=== PATIENT | female | born 1990 | race American Indian/Alaskan Native ===

== ENCOUNTER 2018-07-14 06:08 | Day surgery (SDC) | payer BC ==
[2018-07-08 11:13] LABS: Basophils % (Auto) 0.7 % (0.0-1.8); Eosinophils # (Auto) 0.1 K/mm3 (0.0-0.4); Eosinophils % (Auto) 1.4 % (0.0-4.3); Hemoglobin 11.1 gm/dl (10.1-14.3); Lymphocytes # (Auto) 2.2 K/mm3 (1.2-5.4); Lymphocytes % (Auto) 45.6 % (13.4-35.0); Mean Corpuscular HGB Conc 33 % (30-34); Mean Corpuscular Hemoglobin 28 pg (28-32); Mean Corpuscular Volume 85 fl (79-97); Monocytes # (Auto) 0.4 K/mm3 (0.0-0.8); Platelet Count 286 K/mm3 (140-440); Red Blood Count 3.99 M/mm3 (3.65-5.03)
--- NOTE | 2018-07-13 03:03 | History and Physical Report ---
History of Present Illness Date of examination: 07/10/18 Date of admission: 07/14/18 Chief complaint: heavy painful periods History of present illness: Pt has h/o menorrhagia and dysmenorrhea. SIS done in April 2018 shows an intrauteine fibroid present that is appriximately 1-2 cm in size. Methods of treatment both medical an surgical were d/w pt.She desires myosure at this time. All risk/benefits/alternatives were d/w pt and questions were addressed and answered. Consents were signed and placed on the chart. 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 of genital herpes: yes Hx of STD: HSV II Other: GC/Chlm/Trich Past Medical History: Reviewed history and no changes required: Negative Past Medical History Past Surgical History: negative Negative Past Surgical History General Comments - FH: HTN DM CA-unknown type Social History: Patient is single occ etoh, no tobacco, no drugs Past History Past Medical History: no pertinent history Past Surgical History: no surgical history COMPUTER NUMERICAL CONTROL PROGRAMMER History: denies: abnormal PAP smear Family/Genetic History: cancer Medications and Allergies Allergies Allergy/AdvReac Type Severity Reaction Status Date / Time No Known Allergies Allergy Verified 07/06/18 15:42 Home Medications Medication Instructions Recorded Confirmed Last Taken Type valACYclovir [Valtrex] 1 tab PO DAILY 07/06/18 07/06/18 Unknown History Review of Systems Genitourinary: pelvic pain, other (menorrhagia) - Vital Signs Vital signs: Vital Signs Temp Pulse Resp BP 98.9 F 72 18 132/88 07/08/18 10:45 07/08/18 10:45 07/08/18 10:45 07/08/18 10:45 Temp Pulse Resp BP Pulse Ox 98.9 F 72 18 132/88 07/08/18 10:45 07/08/18 10:45 07/08/18 10:45 07/08/18 10:45 - Physical Exam Breasts: Positive: deferred Cardiovascular: Normal S1, Normal S2 Lungs: Positive: Clear to auscultation, Normal air movement Abdomen: Positive: normal appearance, soft. Negative: distention, tenderness, guarding Genitourinary (Female): Positive: normal external genitalia, normal perenium Vagina: Positive: normal moisture Cervix: Negative: lesion Uterus: Positive: normal size, normal contour Extremities: Positive: normal. Negative: tenderness, edema Deep Tendon Reflex Grade: Normal +2 Results Result Diagrams: 07/08/18 10:55 All other labs normal. Assessment and Plan - Patient Problems (1) Endometrial mass Status: Acute Plan to address problem: -admit for hysteroscopy with myosure -all risk, benefits and alternatives d/w pt and questions were addressed and answered (2) Menorrhagia Status: Acute (3) Dysmenorrhea Status: Acute
[~2018-07-14 06:08] MED LIST: ANCEF/STERILE WATER 2 GM/20 ML 2 GM/20 ML SYRINGE IV NR; NACL 0.9% IR ONE
[2018-07-14] MEDS ORDERED: SUBLIMAZE ONE (07:06)
[2018-07-14] MEDS ORDERED: DIPRIVAN 10 MG/ML IV ONE (07:06)
[2018-07-14] MEDS ORDERED: VERSED IV NR (07:30)
--- NOTE | 2018-07-14 07:41 | Anesthesia Consultation ---
<ARMANDO JUNE - Last Filed: 07/14/18 07:39> Anesthesia Consult and Med Hx Date of service: 07/14/18 - Airway Anesthetic Teeth Evaluation: Good Mallampati Class: Class I Intubation Access Assessment: Good - Pre-Operative Health Status ASA Pre-Surgery Classification: ASA1 Proposed Anesthetic Plan: General - Central Nervous System Hx Psychiatric Problems: No - Other Systems Hx Alcohol Use: Yes (Occas) Hx Cancer: No <MARCO A MARTINEZ - Last Filed: 07/14/18 08:31> Anesthesia Consult and Med Hx - Airway ROM Head & Neck: Adequate Mental/Hyoid Distance: Adequate - Pulmonary Exam CTA: Yes - Cardiac Exam Cardiac Exam: RRR - Pre-Operative Health Status ASA Pre-Surgery Classification: ASA2 - Pulmonary Hx Smoking: No Hx Asthma: No - Cardiovascular System Hx Hypertension: No Hx Heart Attack/AMI: No - Central Nervous System Hx Seizures: No CVA: No - Gastrointestinal Hx Gastroesophageal Reflux Disease: No - Endocrine Hx Renal Disease: No Hx Liver Disease: No Hx Insulin Dependent Diabetes: No Hx Thyroid Disease: No - Other Systems Hx Substance Use: Yes (marijuana) Hx Obesity: Yes - Additional Comments Anesthesia Medical History Comments: No prior anesthetics. No family history of anesthetic complications.
--- NOTE | 2018-07-14 07:45 | Anesthesia Day of Surgery ---
Anesthesia Day of Surgery - Day of Surgery Patient Examined: Yes Patient H&P Reviewed: Yes Patient is NPO: Yes Beta Blockers: No Cardiac Clearance: No Pulmonary Clearance: No
[2018-07-14] MEDS ORDERED: LACTATED RINGERS 1,000 ML IV SCH (08:00)
[2018-07-14] MEDS ORDERED: ZOFRAN ONE (08:21)
[2018-07-14] MEDS ORDERED: DECADRON ONE (08:21)
[2018-07-14] MEDS ORDERED: XYLOCAINE MPF 2% ONE (08:21)
[2018-07-14] MEDS ORDERED: ANCEF/STERILE WATER 2 GM/20 ML 2 GM/20 ML SYRINGE IV NR (09:00)
[2018-07-14] MEDS: DILAUDID IV PRN ×4 (09:15→09:40)
--- NOTE | 2018-07-14 09:39 | Operative Report ---
Operative Report Operative Report: Date of procedure: 07/14/2018 Pre-operative diagnosis: Intrauterine mass Post-operative diagnosis: Same Procedure name(s): Hysteroscopy Myosure Surgeon: Dr. Silver Electric Detector Operator: Certified surgical scrub medication assistant Anesthesia: Gen. endotracheal anesthesia EBL:minimal Urine output: Approximately 50 mL of clear urine out prior to the onset of the procedure Fluids: 900 mL Findings: Intrauterine fibroid measuring approximately 2-3 cm in diameter otherwise normal intrauterine cavity. [place] could not be clearly seen bilaterally. Indications: Patient with a history of menorrhagia for the past several months as well as increasing dysmenorrhea. Patient underwent a saline infused sonogram that showed intrauterine mass. Patient brought to the operating room for removal of intrauterine mass. Consents were signed and placed on the chart all questions were addressed and answered. Procedure: Patient was taken to the operating room where she was placed under general anesthesia. She was placed in dorsal lithotomy position with legs in Kushal stirrups. She was then prepped and draped in sterile fashion. She underwent straight catheterization by using the red Ryan catheter. The anterior lip of the cervix was grasped with a tenaculum and the uterus was sounded to approximately 7 cm. As at this point that the cervix was dilated to allow the passage of a Myosure hysteroscope. Uterine mass was noted at this time. The Haleigh device was used to remove the mass. Uterine cavity was noted to have a smooth appearance. Hemostasis was noted to be excellent. Patient was taken to the recovery room awake and in stable condition. Patient was given Ancef prior to the onset of the procedure. All laps and needle counts were correct. Patient tolerated the procedure well.
--- NOTE | 2018-07-14 09:39 | Short Stay Summary ---
Short Stay Documentation Date of service: 07/14/18 - Allergies and Medications Current Medications: Allergies No Known Allergies Allergy (Verified 07/06/18 15:42) Home Medications Medication Instructions Recorded Confirmed Last Taken Type valACYclovir [Valtrex] 1 tab PO DAILY 07/06/18 07/14/18 1 Week Ago History ~07/07/18 Active Medications Hydromorphone HCl (Dilaudid) 0.25 mg IV Q10MIN PRN PRN Reason: Pain, Moderate (4-6) Stop: 07/14/18 20:00 Last Admin: 07/14/18 09:30 Dose: 0.25 mg Lactated Ringer's (Lactated Ringers) 1,000 mls @ 100 mls/hr IV DIRECT MARY ALICE Last Admin: 07/14/18 07:45 Dose: 100 mls/hr Cefazolin Sodium (Ancef/Sterile Water 2 Gm/20 Ml) 2 gm in 20 mls @ 80 mls/hr IV PREOP NR; Protocol Stop: 07/14/18 12:00 Midazolam HCl (Versed) 2 mg IV ONCE NR Stop: 07/14/18 11:00 Last Admin: 07/14/18 07:45 Dose: 2 mg - Physical exam Breasts: deferred - Brief post op/procedure progress note Date of procedure: 07/14/18 Pre-op diagnosis: intrauterine mass Post-op diagnosis: same Procedure: Hysteroscopic removal of intrauterine fibroid via Myosure device Anesthesia: GETA Findings: See operative report Surgeon: KYLIE FITZPATRICK Estimated blood loss: minimal Pathology: list (portions of mass that was removed from the uterus) Specimen disposition: to lab Condition: stable - Disposition Condition at discharge: Good Disposition: DC-01 TO HOME OR SELFCARE - Discharge Diagnoses (1) Endometrial mass Status: Acute (2) Menorrhagia Status: Acute (3) Dysmenorrhea Status: Acute Short Stay Discharge Plan Follow up with: FEDERICO STANLEY MD [Primary Care Provider] - 7 Days Forms: [facility] Work/School Release Form Prescriptions: oxyCODONE /ACETAMINOPHEN [Percocet 5/325] 1 tab PO Q4HR #30 tab
[2018-07-14 11:08] VITALS: BP 114/63
--- NOTE | 2018-07-14 11:53 | Post Anesthesia Evaluation ---
- Post Anesthesia Evaluation Patient Participated: Yes Airway Patent: Yes Stable Respiratory Function: Yes Nausea/Vomiting: No Temp > 96.8F: Yes Pain Manageable: Yes Adequeate Hydration: Yes Anesthesia Complications: No
== END 2018-07-14 10:50 | disposition home or self-care (01) ==
LOC: OR 06:08
PROVIDERS: ATTEND Obstetrics & Gynecology
DX: N92.0 Excessive and frequent menstruation with regular cycle (principal); E66.9 Obesity, unspecified; Z68.35 Body mass index [BMI] 35.0-35.9, adult; Z72.89 Other problems related to lifestyle; Z79.899 Other long term (current) drug therapy; Z80.8 Family history of malignant neoplasm of other organs or systems
CPT/HCPCS: 36415; 58558; 84703; 85025; 88305; A4217; C1782; J0690; J1100; J1170; J2250; J2405; J2704; J3010